=== PATIENT | female | born 1965 | race Hispanic/Latino ===

== ENCOUNTER 2019-11-09 10:39 | Emergency (ER) | payer MEDICARE, OTHER ==
[~2019-11-09] VITALS: Ht 152.4 cm; Wt 77.1 kg
[2019-11-09] MEDS ORDERED: NAPROXEN500 MG PO (11:05)
[2019-11-09] MEDS ORDERED: TOPAMAX50 MG PO (11:05)
[2019-11-09] MEDS ORDERED: ALLERGY MEDICAT25 MG PO (11:06)
[2019-11-09] MEDS ORDERED: INDOMETHACIN50 MG PO (11:07)
[2019-11-09] MEDS ORDERED: PAROXETINE HCL20 MG PO (11:09)
[2019-11-09] MEDS ORDERED: MECLIZINE HCL25 MG PO (11:10)
[2019-11-09] MEDS ORDERED: DOXYCYCLINE MON50 MG PO ×2 (11:11)
[2019-11-09] MEDS ORDERED: SIMVASTATIN40 MG PO (11:12)
[2019-11-09] MEDS ORDERED: HYDROCHLOROTHIA25 MG PO (11:13)
[2019-11-09] MEDS ORDERED: METFORMIN HCL500 M2 PO (11:14)
[2019-11-09] MEDS ORDERED: MAGNESIUM250 M1 PO (11:15)
[2019-11-09] MEDS ORDERED: CENTRUM SILVER1 EAC5 PO (11:16)
--- OUTSIDE RECORDS SUMMARY | 2019-11-09 11:56 | XMS ---
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 - 2 Visits in 30 Days CARE PROVIDERS [facility] Current PHONE: Unknown Care Guidelines exist for the following facilities: [facility] ( 08/03/2015 ) Abraham VISIT COUNT (12 MO.) [address] [place] [address] TOTAL 5 NOTE: Visits indicate total known visits. ED/UCC VISIT TRACKING (12 MO.) 11/09/2019 10:41 [facility] [place] TYPE: Emergency COMPLAINT: - SOB 10/27/2019 17:17 [facility] [place] TYPE: Emergency DIAGNOSES: - Anxiety disorder, unspecified - HARD TIME BREATHING CHEST PAIN - Shortness of breath 06/20/2019 11:29 [facility] [place] TYPE: Emergency DIAGNOSES: - RIGHT ARM PAIN - Strain of other muscles, fascia and tendons at shoulder and u 04/26/2019 12:56 [facility] [place] TYPE: Emergency DIAGNOSES: - Migraine with aura, not intractable, without status migrainos - Chest pain, unspecified - CHEST PAIN 02/03/2019 19:30 [facility] [place] TYPE: Emergency DIAGNOSES: - Headache/Shoulder Pain - Migraine, unspecified, not intractable, without status migrai INPATIENT VISIT TRACKING (12 MO.) No inpatient visits to display in this time frame [email or web address]
--- NOTE | 2019-11-09 13:13 | EKG ---
[facility] [address] [place], [place] [address] Signed Normal sinus rhythm Nonspecific ST and T wave abnormality Prolonged QT Abnormal ECG No previous ECGs available Confirmed by AMENA AGEE MD ([id number]) on 11/09/2019 1:13:42 PM Electronically Signed By: AMENA AGEE MD 11/09/19 1313 PATIENT NAME: OTTO LABOY Electrocardiogram DATE OF : 69 PHYSICIAN: AMENA AGEE MD REPORT #: [id number] REPORT IS CONFIDENTIAL AND NOT TO BE RELEASED WITHOUT AUTHORIZATION
== END 2019-11-09 14:08 | disposition home or self-care (01) ==
LOC: ED 10:39
DX: R51 Headache (principal); R07.9 Chest pain, unspecified; R06.00 Dyspnea, unspecified; E11.9 Type 2 diabetes mellitus without complications; I10 Essential (primary) hypertension; E78.00 Pure hypercholesterolemia, unspecified; G43.909 Migraine, unspecified, not intractable, without status migrainosus; Z88.5 Allergy status to narcotic agent; Z79.899 Other long term (current) drug therapy; Z91.048 Other nonmedicinal substance allergy status
CPT/HCPCS: 70450; 71045; 80053; 84484; 85025; 93005; 93010; 96361; 96374; 96375; 99285-25; J1200; J2765; J7030

== ENCOUNTER 2020-02-05 16:26 | Emergency (ER) | payer MEDICARE, OTHER ==
[~2020-02-05] VITALS: Ht 152.4 cm; Wt 77.1 kg
[~2020-02-05 16:26] MED LIST: ALLERGY MEDICAT25 MG PO; CENTRUM SILVER1 EAC5 PO; DOXYCYCLINE MON50 MG PO; HYDROCHLOROTHIA25 MG PO; INDOMETHACIN50 MG PO; MAGNESIUM250 M1 PO; MECLIZINE HCL25 MG PO; METFORMIN HCL500 M2 PO; NAPROXEN500 MG PO; PAROXETINE HCL20 MG PO; SIMVASTATIN40 MG PO; TOPAMAX50 MG PO
[2020-02-05] MEDS ORDERED: CEFDINIR300 MG PO (17:05)
[2020-02-05] MEDS ORDERED: CIPRO500 MG PO (20:54)
[2020-02-05] MEDS ORDERED: CIPRODEX OTIC7.5 ML AS (20:54)
[2020-02-05] MEDS ORDERED: PERCOCET 5-3251 EACH PO (20:54)
== END 2020-02-05 21:07 | disposition home or self-care (01) ==
LOC: ED 16:26
DX: H60.92 Unspecified otitis externa, left ear (principal); E11.9 Type 2 diabetes mellitus without complications; I10 Essential (primary) hypertension; E78.00 Pure hypercholesterolemia, unspecified; G43.909 Migraine, unspecified, not intractable, without status migrainosus; Z88.5 Allergy status to narcotic agent; Z91.048 Other nonmedicinal substance allergy status; Z79.899 Other long term (current) drug therapy
CPT/HCPCS: 70480; 80053; 85025; 96374; 99283-25; J1885

== ENCOUNTER 2023-08-03 14:07 | Emergency (ER) | payer MEDICARE, OTHER ==
[~2023-08-03] VITALS: Ht 152.4 cm; Wt 80.1 kg
[~2023-08-03 14:07] MED LIST changes: +CEFDINIR300 MG PO; +CIPRO500 MG PO; +CIPRODEX OTIC7.5 ML AS; +PERCOCET 5-3251 EACH PO
--- OUTSIDE RECORDS SUMMARY | 2023-08-03 14:09 | XMS ---
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 03/30/2020-Current PHONE: [phone] -Matthew+ Dentist: Foot[employer] St[employer]cher [facility] PHONE: [phone] -Guy- Dentist: Footwear [employer]cher Current [facility] PHONE: [phone] Aj Ruggiero Family [facility] PHONE: Unknown Care Guidelines exist for the following facilities: [facility] ( 01/30/2014 ) Care History Social 03/30/2020 [employer] Please contact LIBERTAD Carrera for [employer] assistance [phone] [facility] VISIT COUNT (12 MO.) [facility] TOTAL 6 NOTE: Visits indicate total known visits. ED/UCC VISIT TRACKING (12 MO.) 08/03/2023 14:08 [facility] [place] TYPE: Emergency COMPLAINT: - HEADACHE 06/25/2023 19:08 [employer] [place] TYPE: Emergency DIAGNOSES: - Chest pain, unspecified - CHEST PAIN 03/19/2023 23:31 [employer] [facility] [place] TYPE: Emergency DIAGNOSES: - Cerebral infarction, unspecified - low blood sugar 12/31/2022 08:00 [employer] [place] TYPE: Emergency DIAGNOSES: - Acute cystitis with hematuria - POSSIBLE UTI 12/25/2022 02:34 [facility] DIAGNOSES: - Radiculopathy, cervical region - L arm pain - R arm pain 08/30/2022 18:15 [facility] DIAGNOSES: - Headache, unspecified - Occlusion and stenosis of left carotid artery - Occlusion and stenosis of right carotid artery - Neck pain INPATIENT VISIT TRACKING (12 MO.) 07/25/2023 10:09 [facility] TYPE: Vascular Surgery DIAGNOSES: [id number]. STENOSIS OF RIGHT CAROTID ARTERY 69166. Occlusion and stenosis of right carotid artery 03/19/2023 23:31 [facility] [place] TYPE: Medical Surgical DIAGNOSES: - Cerebral infarction, unspecified 09/30/2022 06:02 [facility] TYPE: Surgery DIAGNOSES: - Occlusion and stenosis of right carotid artery [email or web address]
[2023-08-03] MEDS ORDERED: LABETALOL HCL 20 MG/4 ML VIAL IV ONE ×2 (15:15→16:30)
[2023-08-03 15:27] LABS: BASOPHILS 0.8 % (0-2); EOSINOPHILS 2.7 % (0-6); HEMATOCRIT 42.3 % (35.0-50.0); HEMOGLOBIN 14.2 g/dL (12.0-18.0); MCH 27.3 (27-36); MCHC 33.6 g/dl (30-36); MCV 81.1 fl (81-99); MONOCYTES 7.4 % (0-12); NEUTROPHILS 63.1 % (39-80); PLATELET COUNT 432 K/uL (140-440); RBC 5.21 M/ul (4.3-5.7)
[2023-08-03 15:52] LABS: ALBUMIN 3.4 g/dL (3.4-5.0); ALBUMIN/GLOBULIN RATIO 0.81 (1.1-2.4); ANION GAP 12.9 (7-21); BILIRUBIN, TOTAL 0.2 ng/dL (0.2-1.0); BUN/CREATININE RATIO 25.42 (6.0-28.6); CALCIUM 9.3 mg/dL (8.5-10.1); CREATININE, SERUM 0.59 mg/dL (0.55-1.02); MAGNESIUM 2.1 mg/dL (1.8-2.4); POTASSIUM 3.9 mmol/L (3.5-5.1); PROTEIN, TOTAL 7.6 g/dL (6.4-8.2)
[2023-08-03] MEDS ORDERED: AMLODIPINE BESYL5 MG PO (19:22)
[2023-08-03 20:57] VITALS: BP 114/37
--- NOTE | 2023-08-04 16:10 | EKG ---
[facility] [address] [place], [place] [address] Signed Normal sinus rhythm Normal ECG No previous ECGs available Confirmed by Angela Wheeler ([id number]) on 08/04/2023 4:10:23 PM Electronically Signed By: ANGELA WHEELER MD 08/04/23 1610 PATIENT NAME: LISA FAITHOTTO Electrocardiogram DATE OF : 69 PHYSICIAN: ANGELA WHEELER MD REPORT #: [id number] REPORT IS CONFIDENTIAL AND NOT TO BE RELEASED WITHOUT AUTHORIZATION
== END 2023-08-03 20:57 | disposition home or self-care (01) ==
LOC: ED 14:07
PROVIDERS: Emergency Medicine
DX: R51.9 Headache, unspecified (principal); E11.9 Type 2 diabetes mellitus without complications; I10 Essential (primary) hypertension; E78.00 Pure hypercholesterolemia, unspecified; G43.909 Migraine, unspecified, not intractable, without status migrainosus; Z79.899 Other long term (current) drug therapy; Z88.5 Allergy status to narcotic agent; Z88.8 Allergy status to other drugs, medicaments and biological substances
CPT/HCPCS: 36415; 70450; 71045; 80053; 83735; 84484; 85025; 93005; 93010